=== PATIENT | male | born 1945 | race Caucasian/White ===

== ENCOUNTER 2016-07-11 14:11 | Inpatient (IN) | payer OTHER ==
[~2016-07-11] VITALS: Ht 177.8 cm; Wt 95.3 kg
[2016-07-11 15:10] LABS: HEMOGLOBIN 14.8 gm/dl (14.0-17.5); RED BLOOD COUNT 4.88 M/UL (4.20-5.50); WHITE BLOOD COUNT 10.7 K/UL (4.5-11.0)
[2016-07-11] MEDS ORDERED: NORVASC 5 MG TAB5 MG PO (22:14)
[2016-07-11] MEDS ORDERED: HYDROCHLOROTHIA25 MG PO (22:14)
[2016-07-11] MEDS ORDERED: LISINOPRIL40 MG PO (22:14)
[2016-07-11] MEDS ORDERED: CLARITIN10 M2 PO (22:15)
[2016-07-11] MEDS ORDERED: GLUCOPHAGE 500500 MG PO (22:15)
[2016-07-12 04:33] LABS: ACINETOBACTER BAUMANNII Not Detected (Negative); CANDIDA ALBICANS Not Detected (Negative); CANDIDA KRUSEI Not Detected (Negative); CANDIDA TROPICALIS Not Detected (Negative); ENTEROCOCCUS Not Detected (Negative); HAEMOPHILUS INFLUENZAE Not Detected (Negative); KLEBSIELLA OXYTOCA Not Detected (Negative); KLEBSIELLA PNEUMONIAE Not Detected (Negative); KPC-CARBAPENEM-RESISTANCE GENE Not Detected (Negative); PROTEUS Not Detected (Negative); PSEUDOMONAS AERUGINOSA Not Detected (Negative); SERRATIA MARCESANS Not Detected (Negative); STAPHYLOCOCCUS Not Detected (Negative); STAPHYLOCOCCUS AUREUS Not Detected (Negative); STREP AGALACTIAE (GROUP B) Not Detected (Negative); STREP PYOGENES (GROUP A) Not Detected (Negative); STREPTOCOCCUS Not Detected (Negative); mecA (METHICILLIN RESIST GENE Not Detected (Negative); vanA/B (VANCOMYCIN RESIST GENE Not Detected (Negative)
[2016-07-12 05:48] LABS: HEMOGLOBIN 13.3 gm/dl (14.0-17.5); RED BLOOD COUNT 4.48 M/UL (4.20-5.50); WHITE BLOOD COUNT 11.1 K/UL (4.5-11.0)
[2016-07-12 06:11] LABS: BUN/CREATININE RATIO 23 (0-10)
[2016-07-12 08:03] LABS: ESCHERICHIA COLI DETECTED (Negative)
[2016-07-13 05:55] LABS: HEMOGLOBIN 12.6 gm/dl (14.0-17.5); RED BLOOD COUNT 4.22 M/UL (4.20-5.50); WHITE BLOOD COUNT 11.5 K/UL (4.5-11.0)
[2016-07-13 06:06] LABS: BUN/CREATININE RATIO 33 (0-10)
[2016-07-14] MEDS ORDERED: LEVAQUIN500 MG PO (13:09)
== END 2016-07-14 13:48 | disposition home or self-care (01) | DRG 872 ==
LOC: ER1 14:11 → ZEROF 20:08 → M/S 20:08
PROVIDERS: Emergency Medicine; Physician Assistant Medical; ADMIT Family Medicine
DX: A41.51 Sepsis due to Escherichia coli [E. coli] (principal); E87.2 Acidosis; N17.9 Acute kidney failure, unspecified; E11.65 Type 2 diabetes mellitus with hyperglycemia; R09.02 Hypoxemia; Z87.891 Personal history of nicotine dependence; I10 Essential (primary) hypertension; N30.80 Other cystitis without hematuria; B96.20 Unspecified Escherichia coli [E. coli] as the cause of diseases classified elsewhere; N40.0 Benign prostatic hyperplasia without lower urinary tract symptoms; Z79.84 Long term (current) use of oral hypoglycemic drugs; Z79.899 Other long term (current) drug therapy; Z88.4 Allergy status to anesthetic agent; Z91.041 Radiographic dye allergy status
CPT/HCPCS: 36415; 36600; 71010; 80048; 80053; 81001; 82803; 82962; 83036; 83605; 85025; 85027; 87040; 87077; 87086; 87150; 87186; 94640; 94664; 96361; 96374; 96375; 99285; J0696; J1335; J2930; J7050